=== PATIENT | male | born 1965 | race Caucasian/White ===

== ENCOUNTER 2023-12-10 13:58 | Outpatient (AMB) | payer OTHER, SELFPAY ==
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
== END 2023-12-10 15:08 | disposition home or self-care (01) ==
PROVIDERS: PCP Internal Medicine; Referring Provider Physician Assistant; Visit Provider Physician Assistant
DX: M54.16 Radiculopathy, lumbar region (principal)
CPT/HCPCS: 99204

== ENCOUNTER 2023-12-10 13:58 | Outpatient (REF) | payer OTHER, SELFPAY ==
--- NOTE | ~2023-12-10 | XR_ITS ---
EXAMINATION: XR LUMBOSACRAL SPINE WITH OBLIQUES CLINICAL INFORMATION: Radiculopathy of lumbar region. COMPARISON: None available. TECHNIQUE: 4 views of the lumbosacral spine, including lateral views acquired during flexion and extension. FINDINGS: Multilevel osteophyte formation of the spine. No suspicious bone lesions. No vertebral compression fractures. There is at least moderate degenerative loss of the disc space at L4-L5 and L5-S1. Otherwise, disc spaces are generally well-preserved within the lumbar spine. There is mild degenerative facet joint hypertrophy at L4-L5. Mild multilevel lumbar vertebral subluxations are present and these do not significantly change during flexion or extension. Findings include approximately 0.2 cm of retrolisthesis at L2-L3 and L3-L4, and approximately 0.3 cm of retrolisthesis and mild left lateral listhesis at L4-L5. There is minimal retrolisthesis of L5 on S1. Sacrum and sacroiliac joints are unremarkable. There is atherosclerotic calcification of the aorta and iliac arteries without radiographic evidence of aneurysm. XR/XR lumbar spine 4V min IMPRESSION: Mild multilevel subluxations of the degenerated lumbar spine do not significantly change on flexion or extension views. The vertebral subluxation is most pronounced at L4-L5 where there is moderate disc degenerative change and retrolisthesis and left lateral listhesis of L4 on L5.
--- NOTE | ~2023-12-10 | XR_ITS ---
EXAMINATION: XR HIP, LEFT CLINICAL INFORMATION: Radiculopathy of lumbar region. Pain. COMPARISON: None available. TECHNIQUE: Two views of the left hip. FINDINGS: The femoral head is well-positioned within the intact acetabulum. The articular cartilage space is maintained. There is no radiographic evidence of any significant degenerative or inflammatory arthropathy. No lytic or osteoblastic lesion. No focal soft tissue swelling or suspicious soft tissue calcification. Vascular calcifications are seen within the pelvis. XR/XR hip LT min 2V IMPRESSION: Normal left hip.
== END 2023-12-10 13:59 | disposition home or self-care (01) ==
LOC: HO.HOSX 13:58
PROVIDERS: PCP Internal Medicine; Visit Provider Physician Assistant
DX: M54.16 Radiculopathy, lumbar region (principal)
CPT/HCPCS: 72110; 73502; 99202